=== PATIENT | female | born 1935 | race Caucasian/White ===

== ENCOUNTER 2022-02-13 19:10 | Inpatient (IN) | payer OTHER, SELFPAY ==
[2022-02-13] VITALS (9 sets, daily range): BP systolic 110–140; BP diastolic 65–85; PULSE 85–100; RESP 16–28; TEMP 37.2–39.2; O2SAT 87–96; BMI 24.3; BMI 21.2
[2022-02-13] MEDS: Ipratropium/Albuterol Sulfate 3 ML AMPUL.NEB INHALATION (20:07)
--- NOTE | 2022-02-13 20:10 | EDS_ITS ---
HPI History of Present Illness Chief Complaint: Shortness of Breath Informant: patient and family Narrative Narrative: Patient is here for chills and fever and she vomited once at home. It took quite a bit of information to get that. We talked for quite some time. Patient has dementia. She evidently is not that active. She denied absolutely everything to me. Her family member then spoke up at the end of the visit. He stated that she had chills and rigors tonight. This is what he describes. Although she had denied any nausea vomiting he she evidently did vomit after eating dinner. She sometimes coughs in the morning. He is not sure if she is coughing more. Nothing seems to make her symptoms better or worse. [facility] Medical History Alzheimer disease Atrial fibrillation Dementia Home Medications atorvastatin 10 mg tablet 10 mg PO QHS 10/14/15 [History Last Taken Unknown] fluoxetine 20 mg capsule 10 mg PO DAILY 10/14/15 [History Last Taken Unknown] ondansetron 8 mg disintegrating tablet 8 mg PO Q12H PRN PRN Nausea ##10 10/14/15 [Rx Last Taken Unknown] pantoprazole 40 mg tablet,delayed release 40 mg PO DAILY 10/14/15 [History Last Taken Unknown] spironolactone 25 mg tablet 25 mg PO DAILY 10/14/15 [History Last Taken Unknown] warfarin 2 mg tablet 2 mg PO DAILY 10/14/15 [History Last Taken Unknown] amlodipine 5 mg tablet 5 mg PO DAILY 02/13/22 [History Last Taken Unknown] carvedilol 3.125 mg tablet 3.125 mg PO DAILY 02/13/22 [History Last Taken Unk nown] meloxicam 7.5 mg tablet 7.5 mg PO DAILY 02/13/22 [History Last Taken Unknown] Allergy/AdvReac Type Severity Reaction Status Date / Time Penicillins Allergy Other Verified 02/13/22 21:53 Sulfa (Sulfonamide Allergy Other Verified 02/13/22 21:53 Antibiotics) Surgical History H/O section H/O mastectomy History of appendectomy Hx of cholecystectomy Social History Smoking Status: Never smoker ROS ROS ED Constitutional Constitutional ED: Reports chills, fever(s) and sweats ENT ENT ED: Denies rhinorrhea or sore throat Cardiovascular Cardiovascular: Denies chest pain Respiratory/Chest Respiratory/Chest: Reports cough Gastrointestinal Gastrointestinal: Reports vomiting; Denies abdominal pain Genitourinary Genitourinary ED: Denies dysuria Musculoskeletal Musculoskeletal: Denies arthralgias or myalgias Integumentary Denies rash Neurologic Neurologic: Denies headache(s) Psychiatric Psychiatric: Reports other Details: History of dementia. No apparent significant change. Endocrine Endocrinology: Denies polydipsia or polyuria Hematologic/Lymphatic Hematologic/Lymphatic: Reports easy bleeding and easy bruising Allergic/Immunologic Allergic/Immunologic ED: Denies urticaria EXAM Physical Exam Const Vital Signs: 02/13/22 19:11 02/13/22 19:16 02/13/22 19:16 Temperature 102.6 F H 102.6 F H 102.6 F H Temperature Source Oral Oral Oral Pulse Rate 99 100 99 Respiratory Rate 20 H 22 H 20 H Respiratory Effort Respiratory Depth Respiratory Pattern Blood Pressure 134/76 H 136/75 H 134/76 H Blood Pressure Mean 95 95 95 Pulse Ox 87 93 93 Oxygen Delivery Method Room Air Nasal Cannula Nasal Cannula Oxygen Flow Rate (L/min) 3 3 02/13/22 19:16 02/13/22 19:37 02/13/22 20:08 Temperature Temperature Source Pulse Rate 91 90 Respiratory Rate 25 H 28 H Respiratory Effort Short of Breath Respiratory Depth Normal Respiratory Pattern Normal Blood Pressure 129/85 H Blood Pressure Mean 99 Pulse Ox 96 Oxygen Delivery Method Room Air Nasal Cannula Oxygen Flow Rate (L/min) 3 02/13/22 20:37 02/13/22 20:37 02/13/22 21:00 Temperature 102.6 F H 101.9 F H Temperature Source Oral Temporal Pulse Rate 86 87 87 Respiratory Rate 16 27 H 23 H Respiratory Effort Respiratory Depth Respiratory Pattern Blood Pressure 122/65 H 122/65 H 140/77 H Blood Pressure Mean 84 84 98 Pulse Ox 94 93 92 Oxygen Delivery Method Room Air Room Air Room Air Oxygen Flow Rate (L/min) 02/13/22 21:00 Temperature Temperature Source Pulse Rate 87 Respiratory Rate 25 H Respiratory Effort Respiratory Depth Respiratory Pattern Blood Pressure 140/77 H Blood Pressure Mean 98 Pulse Ox 92 Oxygen Delivery Method Room Air Oxygen Flow Rate (L/min) Positive well nourished and well developed Constitutional Narrative: Patient is comfortable but I see her when she is on oxygen. General Appearance ED: well developed and NAD HEENT Reports moist mucous membranes Eyes General Eye ED: Negative for scleral icterus Neck no JVD Resp normal respiratory effort Resp Narrative: Breathing seems unlabored. But she does have coarse breath sounds mostly on the left side. On her first breath I thought I heard a wheeze but this seemed to improve with further breaths. I will give a breathing treatment to see if this helps her though. Auscultation: rhonchi and wheezes Cardio regular rate and regular rhythm Cardio Narrative: She has a history of atrial fibrillation but her rate sounds quite regular at this time. GI non-tender and non-distended Back/Spine no CVA tenderness Extremity General Extremety ED: Negative for edema or tenderness General Extremity: Negative for edema Neuro Sensorium / Orientation: alert Psych mental status grossly normal Skin no wounds MDM MDM MDM Narrative Medical decision making narrative: X-ray shows some possible congestion. White count is very high at 25.9. Mild anemia. Electrolytes show minimally low potassium. She has elevated creatinine but has a history of this. INR is actually low making me think she actually is no longer on Coumadin. But her symptoms do not match pulmonary embolus. Her lactate was normal at 1.6. Patient does meet sepsis but not severe sepsis criteria. I do not think IV fluids would help and they may hurt her. Her blood pressure is fine. She is given Tylenol for the fever. Breathing treatment did seem to help her in terms of oxygenation although there is no history of chronic lung disease. She was treated with Levaquin because of allergy to penicillin with unknown response. I discussed case with the hospitalist. Lab Data Attestation: I reviewed the patient's lab results. Labs: Laboratory Results - last 24 hr 02/13/22 02/13/22 02/13/22 19:35 19:35 19:35 WBC 25.9 H RBC 3.61 L Hgb 10.1 L Hct 32.1 L MCV 88.9 MCH 28.0 MCHC 31.5 L RDW Std Deviation 48.8 H RDW Coeff of Lyudmila 15.0 H Plt Count 292 MPV 9.8 Immature Gran % (Auto) 2.200 H Neut % (Auto) 92.4 H Lymph % (Auto) 2.3 L [place] % (Auto) 2.2 Eos % (Auto) 0.5 Baso % (Auto) 0.4 Absolute Neuts (auto) 23.9 H Absolute Lymphs (auto) 0.60 L Nucleated RBC % 0 Differential Comment SCANNED PT 15.1 H INR 1.2 Sodium 139 Potassium 3.4 L Chloride 103 Carbon Dioxide 23.0 Anion Gap 13 BUN 39 H Creatinine 2.45 H Estim Creat Clear Calc 13.63 Est GFR (MDRD) Af Amer 24 L Est GFR (MDRD) Non-Af 20 L BUN/Creatinine Ratio 15.9 Glucose 193 H Lactic Acid Calcium 9.1 02/13/22 20:00 WBC RBC Hgb Hct MCV MCH MCHC RDW Std Deviation RDW Coeff of Lyudmila Plt Count MPV Immature Gran % (Auto) Neut % (Auto) Lymph % (Auto) [place] % (Auto) Eos % (Auto) Baso % (Auto) Absolute Neuts (auto) Absolute Lymphs (auto) Nucleated RBC % Differential Comment PT INR Sodium Potassium Chloride Carbon Dioxide Anion Gap BUN Creatinine Estim Creat Clear Calc Est GFR (MDRD) Af Amer Est GFR (MDRD) Non-Af BUN/Creatinine Ratio Glucose Lactic Acid 1.6 Calcium Radiography Diagnostic Testing: Clinical Impression(s) from Imaging Studies Chest X-Ray 02/13/22 20:26 IMPRESSION: 1. Findings are concerning for congestive heart failure exacerbation. 2. Dense airspace disease at the medial aspect of the right upper lobe/apex. Pneumonia is not excluded in proper clinical setting. Electronically Signed: Daniel Jeffers MD at 21:14 EST , AirspaceEKG suspect pain and congestive heart failure. But patient and family deny history of this. Disease at the right upper lobe. Considering she has a fever, cough high white count I think this is likely the source. EKG Initial EKG: Comments: EKG done for history of atrial fibrillation read by me shows a normal sinus rhythm but with first-degree AV block. Overall rate is controlled at 90. No acute ST elevation or depression. There is some T wave inversion laterally. SD interval is long. QRS duration is normal. QTC is long. Discharge Plan Triage Chief Complaint: Shortness of Breath ED Provider: Mina Ordaz Dx/Rx/DC Orders Clinical Impression: Pneumonia, Hypoxia, Sepsis, Leukocytosis Prescriptions: No Action atorvastatin 10 MG tablet 10 mg PO QHS spironolactone 25 MG tablet 25 mg PO DAILY pantoprazole 40 MG tablet 40 mg PO DAILY fluoxetine 20 MG capsule 10 mg PO DAILY warfarin 2 MG tablet 2 mg PO DAILY ondansetron 8 MG tablet,disintegrating 8 mg PO Q12H PRN PRN (Reason: Nausea) Qty: 10 0RF Rx Instructions: amlodipine 5 mg Tablet 5 mg PO DAILY carvedilol 3.125 mg Tablet 3.125 mg PO DAILY meloxicam 7.5 mg Tablet 7.5 mg PO DAILY Primary Care Provider: aJn Johnson Referrals: Jan Johnson MD [Primary Care Provider] - Disposition Disposition: Acute Care [facility]
[2022-02-13 20:13] LABS: Absolute Neutrophil Count 23.9 X10^3/uL (2.0-7.7); Basophil# 0.11 X10^3/uL; Basophil% 0.4 % (0-1); Eosinophil# 0.13 X10^3/uL; Eosinophils% 0.5 % (0-5); Hematocrit 32.1 % (37-47); Hemoglobin 10.1 g/dL (12.0-15.0); Lymphocyte % 2.3 % (19-41); Mean Corp Hgb Conc 31.5 g/dL (32-36); Mean Corpuscular Volume 88.9 fL (81-99); Mean Platelet Vol. 9.8 fl (6.2-12.0); Monocyte# 0.56 X10^3/uL; Monocyte% 2.2 % (0-10); NRBC Flagged by Analyzer 0 % (0-5); Neutrophil # 23.88 X10^3/uL (2.7-7.7); Neutrophil % 92.4 % (47-70); POSITIVE DIFFERENTIAL YES; Platelet Count 292 K/mm3 (150-450); RBC Distribution Width SD 48.8 fl (35.1-43.9); Red Blood Count 3.61 M/mm3 (4.2-5.4); White Blood Count 25.9 K/mm3 (4.4-11.0)
--- NOTE | 2022-02-13 20:26 | RAD_ITS ---
EXAM: XR CHEST, 1 VIEW CLINICAL INDICATION: cough TECHNIQUE: Frontal view of the chest. This report was created using [employer] report generation technology. COMPARISON: None. FINDINGS: LUNGS AND PLEURAL SPACES: Vascular congestion at the upper lungs. Dense opacity along the right paratracheal stripe region probably represents parenchymal disease. Scarring on the left and right midlung. Calcified granuloma in the right lower lobe. Small pleural effusions versus pleural parenchymal scarring. No pneumothorax. HEART: Cardiomegaly and/or pericardial effusion. MEDIASTINUM: Central airways and mediastinal contour are unremarkable. BONES/JOINTS: Diffuse osteopenia. Degenerative changes of the spine, glenohumeral joints, and acromioclavicular joints. SOFT TISSUES: Surgical clips project over the left axilla/lateral chest wall. VASCULATURE: Ectatic thoracic aortic arch with atherosclerotic calcifications. LYMPH NODES: Nodular fullness of the hilar regions, right worse than left may represent adenopathy and/or pulmonary arterial enlargement. RAD/Chest 1 View (Portable) IMPRESSION: 1. Findings are concerning for congestive heart failure exacerbation. 2. Dense airspace disease at the medial aspect of the right upper lobe/apex. Pneumonia is not excluded in proper clinical setting. Electronically Signed: Daniel Jeffers MD at 21:14 EST ,
[2022-02-13 20:27] LABS: Anion Gap 13 (5-15); BUN 39 mg/dL (7-18); BUN/Creat Ratio 15.9 RATIO (10-20); Calcium,Total 9.1 mg/dL (8.5-10.1); Chloride 103 mmol/L (98-107); Creatinine, Serum 2.45 mg/dL (0.55-1.02); Differential Indicated SCAN CRITERIA MET; EST Glomerular Filtration Rate 20 mL/min (>60); Est Glom Filt Rate - Afr Amer 24 mL/min (>60); Estimated Creatinine Clearance 13.63 ml/min; Glucose 193 mg/dL (74-106); Potassium 3.4 mmol/L (3.5-5.1); Sodium Level 139 mmol/L (136-145)
[2022-02-13 20:37] LABS: Lactic Acid 1.6 mmol/L (0.4-1.9)
[2022-02-13 20:45] LABS: International Normalized Ratio 1.2; Prothrombin Time (Protime)PT. 15.1 SECONDS (11.7-14.9)
[2022-02-13 20:49] LABS: Differential Comment SCANNED
[2022-02-13] MEDS: Acetaminophen 500 MG Tablet 1000 MG PO (20:59)
[2022-02-13] MEDS: levoFLOXacin IV 500 MG/100 ML BAG 100 MG IV (21:29)
--- NOTE | 2022-02-13 22:15 | HP.PCM.HOS_ITS ---
HPI - General General Date of Admission: 02/13/22 HPI Narrative MARY CM, is a 86 F who presents from home with fevers, chills, and rigors. She does have some baseline of dementia so she is a little bit of a poor historian however according to the son she started becoming sick all of a sudden today and he denies any sick contacts at home. In the ER she was found to be tachypneic and have a leukocytosis of 25.9. Source of the infection was found to be in her lungs based on chest x-ray. Her point of the family she does not have a history of heart failure but does have a history of A. fib but we do not have any cardiac work-up here at this institution. She did have an episode of nausea and vomiting today however he does not feel like she aspirated and does not think that she has difficulty eating. [facility] Medical History Alzheimer disease Atrial fibrillation Dementia Home Medications atorvastatin 10 mg tablet 10 mg PO QHS 10/14/15 [History Last Taken Unknown] fluoxetine 20 mg capsule 10 mg PO DAILY 10/14/15 [History Last Taken Unknown] ondansetron 8 mg disintegrating tablet 8 mg PO Q12H PRN PRN Nausea ##10 10/14/15 [Rx Last Taken Unknown] pantoprazole 40 mg tablet,delayed release 40 mg PO DAILY 10/14/15 [History Last Taken Unknown] spironolactone 25 mg tablet 25 mg PO DAILY 10/14/15 [History Last Taken Unknown] warfarin 2 mg tablet 2 mg PO DAILY 10/14/15 [History Last Taken Unknown] amlodipine 5 mg tablet 5 mg PO DAILY 02/13/22 [History Last Taken Unknown] carvedilol 3.125 mg tablet 3.125 mg PO DAILY 02/13/22 [History Last Taken Unknown] meloxicam 7.5 mg tablet 7.5 mg PO DAILY 02/13/22 [History Last Taken Unknown] Allergy/AdvReac Type Severity Reaction Status Date / Time Penicillins Allergy Other Verified 02/13/22 21:53 Sulfa (Sulfonamide Allergy Other Verified 02/13/22 21:53 Antibiotics) Family History (Updated 02/13/22 @ 22:[address] Javad Lawrence MD) Other Heart disease Hypertension Surgical History H/O section H/O mastectomy History of appendectomy Hx of cholecystectomy Social History Smoking Status: Never smoker ROS Constitutional Constitutional: Reports chills, fatigue and fever(s); Denies malaise Eyes Eyes: Denies blurry vision ENT HEENT: Denies headache(s) or nasal discharge Cardiovascular Cardiovascular: Denies chest pain, dyspnea on exertion or syncope Respiratory/Chest Respiratory/Chest: Reports cough; Denies shortness of breath at rest or shortness of breath with exertion Gastrointestinal Gastrointestinal: Reports nausea and vomiting; Denies constipation or diarrhea Genitourinary Genitourinary: Denies dysuria Neurologic Neurologic: Denies focal weakness, numbness or tremor(s) Psychiatric Psychiatric: Denies anxiety or depression Vital Signs Vital Signs Vital Signs: 02/13/22 19:11 02/13/22 19:16 02/13/22 19:16 Temperature 102.6 F H 102.6 F H 102.6 F H Temperature Source Oral Oral Oral Pulse Rate 99 100 99 Respiratory Rate 20 H 22 H 20 H Respiratory Effort Respiratory Depth Respiratory Pattern Blood Pressure 134/76 H 136/75 H 134/76 H Blood Pressure Mean 95 95 95 Pulse Ox 87 93 93 Oxygen Delivery Method Room Air Nasal Cannula Nasal Cannula Oxygen Flow Rate (L/min) 3 3 02/13/22 19:16 02/13/22 19:37 02/13/22 20:08 Temperature Temperature Source Pulse Rate 91 90 Respiratory Rate 25 H 28 H Respiratory Effort Short of Breath Respiratory Depth Normal Respiratory Pattern Normal Blood Pressure 129/85 H Blood Pressure Mean 99 Pulse Ox 96 Oxygen Delivery Method Room Air Nasal Cannula Oxygen Flow Rate (L/min) 3 02/13/22 20:37 02/13/22 20:37 02/13/22 21:00 Temperature 102.6 F H 101.9 F H Temperature Source Oral Temporal Pulse Rate 86 87 87 Respiratory Rate 16 27 H 23 H Respiratory Effort Respiratory Depth Respiratory Pattern Blood Pressure 122/65 H 122/65 H 140/77 H Blood Pressure Mean 84 84 98 Pulse Ox 94 93 92 Oxygen Delivery Method Room Air Room Air Room Air Oxygen Flow Rate (L/min) 02/13/22 21:00 02/13/22 22:07 Temperature 99.6 F H Temperature Source Oral Pulse Rate 87 85 Respiratory Rate 25 H 22 H Respiratory Effort Respiratory Depth Respiratory Pattern Blood Pressure 140/77 H 123/75 H Blood Pressure Mean 98 91 Pulse Ox 92 93 Oxygen Delivery Method Room Air Room Air Oxygen Flow Rate (L/min) Weight Weight: 137 lb 5.568 oz Body Mass Index (BMI) 24.3 Physical Exam Narrative General: Alert, Oriented x 2, Cooperative, No apparent distress HEENT: Atraumatic, PERRLA, EOMI, Normocephalic Oral: Dry mucosa Neck: Supple, No JVD Lungs: Diminished, Normal air movement, rhonchi greater on left than right, No wheeze, No rales Cardiovascular: Regular rate, Regular Rhythm, Normal S1, Normal S2, LIDIA Abdomen: Soft, Non Tender, Non-Distended, No Hepato-splenomegaly Extremities: No edema, Capillary Refill Less than 3 Seconds Skin: No rashes, No breakdown Musculoskeletal: No Tenderness to Palpation of Joints or Extremities Neurological: Cranial nerves II-XII grossly intact, Motor Exam 5/5 strength throughout, Sensory exam intact to light touch and pain Psych/Mental Status: Normal Affect, Appropriate Results Lab / Micro Data Result Diagrams: 02/13/22 19:35 02/13/22 19:35 Labs: Laboratory Results - last 24 hr 02/13/22 19:35: WBC 25.9 H, RBC 3.61 L, Hgb 10.1 L, Hct 32.1 L, MCV 88.9, MCH 28.0, MCHC 31.5 L, RDW Std Deviation 48.8 H, RDW Coeff of Lyudmila 15.0 H, Plt Count 292, MPV 9.8, Immature Gran % (Auto) 2.200 H, Neut % (Auto) 92.4 H, Lymph % (Auto) 2.3 L, [place] % (Auto) 2.2, Eos % (Auto) 0.5, Baso % (Auto) 0.4, Absolute Neuts (auto) 23.9 H, Absolute Lymphs (auto) 0.60 L, Nucleated RBC % 0, Differential Comment SCANNED 02/13/22 19:35: Sodium 139, Potassium 3.4 L, Chloride 103, Carbon Dioxide 23.0, Anion Gap 13, BUN 39 H, Creatinine 2.45 H, Estim Creat Clear Calc 13.63, Est GFR (MDRD) Af Amer 24 L, Est GFR (MDRD) Non-Af 20 L, BUN/Creatinine Ratio 15.9, Glucose 193 H, Calcium 9.1 02/13/22 19:35: PT 15.1 H, INR 1.2 02/13/22 20:00: Lactic Acid 1.6 Micro: Microbiology 02/13/22 19:55 Nasal Secretion SARS-CoV-2 & FLU Antigen (Rapid) - Final Radiology Impression Chest X-Ray 02/13/22 20:26 IMPRESSION: 1. Findings are concerning for congestive heart failure exacerbation. 2. Dense airspace disease at the medial aspect of the right upper lobe/apex. Pneumonia is not excluded in proper clinical setting. Electronically Signed: Daniel Jeffers MD at 21:14 EST , Assessment & Plan Assessment/Plan (1) Sepsis: (2) Pneumonia: PLAN: Plan 1. Sepsis secondary to left lower lobe pneumonia ? The pathology on exam appears to be in the left lung ? That she does have cardiomegaly but she does not appear to be volume overloaded at this time ? We will continue with Levaquin every 48 secondary to an allergy to penicillin that she cannot describe ? We will continue with gentle IV fluids, especially given her cardiomegaly on chest x-ray and concern for possible history of CHF that we are not aware of. Currently she is clinically stable ? We will obtain sputum culture ? As to her renal function will only have 2 creatinine levels therefore it is h tameka to tell what her chronic kidney disease stage is at and whether or not she currently has an ANTHONY we will monitor with a BMP 2. A. fib/HTN/HLD ? Does not appear to be a history of CHF however there is mention in her medical record of being on Aldactone ? Blood pressure currently stable we will and given her sepsis as well hold off on restarting her Coreg or her Norvasc ? Can restart her Lipitor if verified ? Can restart her anticoagulation if verified, INR today was 1.2 3. Dementia ? The son states that she generally does well at home but she has been having some mild decline over the last couple years DVT: Heparin Sepsis Attestation Sepsis Attestation: Agree w/Sepsis Possible Source of Sepsis: Pulmonary Sepsis Organ Dysfunction Criteria Present: Creatinine > 2.0 mg/dL Charges/Coding Visit Charges Inpatient E&M: 23217 Init Hosp L2
[2022-02-13] MEDS: 0.9% Normal Saline 1,000 ML 75 ML IV (23:25)
[2022-02-14] VITALS (9 sets, daily range): BP systolic 102–129; BP diastolic 49–78; PULSE 72–88; RESP 14–18; TEMP 36.8–37.6; O2SAT 85–95
[2022-02-14 04:58] LABS: Absolute Lymphocyte Count 0.62 X10^3/uL (0.83-4.51); Absolute Neutrophil Count 22.2 X10^3/uL (2.0-7.7); Basophil# 0.05 X10^3/uL; Basophil% 0.2 % (0-1); Hematocrit 28.3 % (37-47); Hemoglobin 8.7 g/dL (12.0-15.0); Lymphocyte # 0.62 X10^3/ul (0.83-4.51); Lymphocyte % 2.6 % (19-41); Mean Corp Hgb Conc 30.7 g/dL (32-36); Mean Corpuscular Hgb 27.6 pg (27.0-32.0); Mean Corpuscular Volume 89.8 fL (81-99); Mean Platelet Vol. 9.8 fl (6.2-12.0); Monocyte# 0.66 X10^3/uL; Monocyte% 2.7 % (0-10); NRBC Flagged by Analyzer 0 % (0-5); Neutrophil # 22.23 X10^3/uL (2.7-7.7); Neutrophil % 92.1 % (47-70); POSITIVE DIFFERENTIAL YES; Platelet Count 213 K/mm3 (150-450); RBC Distribution Width SD 49.5 fl (35.1-43.9); Red Blood Count 3.15 M/mm3 (4.2-5.4); White Blood Count 24.1 K/mm3 (4.4-11.0)
[2022-02-14 05:12] LABS: Differential Indicated SCAN CRITERIA MET
[2022-02-14 05:35] LABS: Anion Gap 12 (5-15); BUN 42 mg/dL (7-18); BUN/Creat Ratio 16.7 RATIO (10-20); Calcium,Total 8.4 mg/dL (8.5-10.1); Chloride 104 mmol/L (98-107); Creatinine, Serum 2.51 mg/dL (0.55-1.02); EST Glomerular Filtration Rate 19 mL/min (>60); Est Glom Filt Rate - Afr Amer 23 mL/min (>60); Estimated Creatinine Clearance 15.06 ml/min; Glucose 148 mg/dL (74-106); Potassium 3.2 mmol/L (3.5-5.1); Sodium Level 139 mmol/L (136-145)
[2022-02-14 05:37] LABS: Anisocytosis 1+
--- NOTE | 2022-02-14 06:52 | NURSING ---
Documentation reviewed with Brian RANDLE.
[2022-02-14] MEDS: Potassium Chloride Oral Tablet 20 MEQ 40 MEQ PO (08:38)
[2022-02-14] MEDS: Heparin Injection (Vial) 5,000 UNIT/ML VIAL 5000 UNIT SC ×2 (08:49→22:06)
[2022-02-14] MEDS: guaiFENesin 600 MG Tablet PO ×2 (08:49→22:06)
--- NOTE | 2022-02-14 11:25 | CASEMGMT ---
SW reviewed chart and patient is listed as self pay. SW met with patient's daughter. Introduced self and role at [facility]. SW explained SW noted patient is listed as self pay. SW asked if they needed any resources to assist with medication etc. Patient's daughter said their taoism normally pays for their medical costs. Afshan Hernandez [employer]
--- NOTE | 2022-02-14 12:21 | ECHOD_ITS ---
Reason For Study: Murmur Procedure This was a 2D Doppler, Color Flow transthoracic echocardiogram. Exam performed portable in patient room. Left Ventricle Normal size and thickness. The left ventricular ejection fraction is 25 %. Stage 2 diastolic dysfunction. Right Ventricle Normal right ventricle. Atria The left atrium is severely enlarged. Normal right atrium. Patent foramen ovale. Mitral Valve Severe diffuse mitral valve calcification. Mild-Moderate (1-2+) mitral valve insufficiency. Tricuspid Valve Mild tricuspid valve insufficiency. Right ventricular systolic pressure estimated to be 42 mmHg. Aortic Valve Severe diffuse aortic valve calcification. Mild to moderate aortic stenosis. Pulmonic Valve The pulmonic valve is not well visualized. Great Vessels Normal sized aortic root. Pericardium/Pleural No pericardial effusion. MMode/2D Measurements & Calculations LVIDd: 5.2 cm IVSd: 0.96 cm LVOT diam: 1.9 cm LVIDs: 4.5 cm LVPWd: 0.82 cm LVOT area: 3.0 cm2 RVDd: 4.2 cm FS: 13.0 % Ao root diam: 3.4 cm LAV(MOD-bp): 88.0 ml LVAd ap4: 30.3 cm2 LAV(MOD-bp) Indexed: 52.7 ml/m2 LVLd ap4: 7.7 cm LAV(MOD-sp2): 94.6 ml EDV(MOD-sp4): 96.6 ml LAV(MOD-sp4): 73.2 ml EDV(sp4-el): 100.7 ml LVAs ap4: 24.9 cm2 LVLs ap4: 6.9 cm ESV(MOD-sp4): 72.9 ml ESV(sp4-el): 76.2 ml EF(MOD-sp4): 24.5 % EF(sp4-el): 24.3 % LVAd ap2: 32.4 cm2 SV(MOD-sp4): 23.6 ml SV(MOD-sp2): 16.2 ml LVLd ap2: 8.0 cm EDV(MOD-sp2): 106.6 ml EDV(sp2-el): 110.5 ml LVAs ap2: 29.0 cm2 LVLs ap2: 7.6 cm ESV(MOD-sp2): 90.4 ml ESV(sp2-el): 93.8 ml EF(MOD-sp2): 15.2 % SV(sp4-el): 24.5 ml LA dimension(2D): 4.4 cm LA A4 area: 24.5 cm2 RA A4 area: 20.6 cm2 Doppler Measurements & Calculations MV E max pepe: 141.3 cm/sec Lat Peak E' Pepe: 5.6 cm/sec Med Peak E' Pepe: 5.3 cm/sec MV A max pepe: 77.0 cm/sec E/E' lat: 25.0 E/E' med: 26.5 MV E/A: 1.8 MV V2 max: 145.4 cm/sec MV P1/2t max pepe: 142.2 cm/sec Ao V2 max: 260.4 cm/sec MV max P.5 mmHg MV P1/2t: 47.9 msec Ao max P.2 mmHg MV V2 mean: 89.0 cm/sec MV dec slope: 869.7 cm/sec2 Ao V2 mean: 192.7 cm/sec MV mean P.5 mmHg Ao mean P.3 mmHg MV V2 VTI: 22.7 cm MVA(P1/2t): 4.6 cm2 Ao V2 VTI: 53.3 cm MVA(VTI): 3.7 cm2 AMINATA(I,D): 1.6 cm2 AMINATA(V,D): 1.6 cm2 LV V1 max: 143.7 cm/sec SV(LVOT): 83.8 ml TR max pepe: 281.4 cm/sec LV V1 max P.3 mmHg TR max P.0 mmHg LV V1 mean P.7 mmHg LV V1 mean: 102.9 cm/sec LV V1 VTI: 28.4 cm ECHO/Echo Complete W/ Contrast Interpretation Summary The left ventricular ejection fraction is 25 %. Stage 2 diastolic dysfunction. Patent foramen ovale. Severe diffuse mitral valve calcification. Mild-Moderate (1-2+) mitral valve insufficiency. Mild tricuspid valve insufficiency. Right ventricular systolic pressure estimated to be 42 mmHg. Severe diffuse aortic valve calcification. Mild to moderate aortic stenosis. Ordering Physician: Amada Sutton Referring Physician: Jan Johnson M.D. Performed By: Dulce Langford RCS
[2022-02-14] MEDS: amLODIPine 5 MG Tablet PO (12:32)
[2022-02-14] MEDS: Carvedilol 3.125 MG TABLET PO (12:32)
[2022-02-14] MEDS: FLUoxetine 10 MG Capsule PO (12:32)
[2022-02-14] MEDS: 0.9% Saline Lock 10 ML Syringe IV ×2 (12:35→15:25)
[2022-02-14] MEDS: Ondansetron 4 MG/2 ML Vial IV (12:35)
--- NOTE | 2022-02-14 13:00 | PCM.PN.HOSP ---
Subjective Subjective Daughter at bedside with patient. Reports that she has been having ongoing worsening shortness of breath for approximately the last 6 weeks that is worse in the morning and then subside some throughout the day. She is not overtly active. Her white count is elevated and chest x-ray did suggest some signs of pneumonia so she was started antibiotics however I do suspect there may be a component of heart failure as well. Patient is on room air. Objective Data Objective Data Vital Signs: Vital Signs Temp Pulse Resp BP Pulse Ox O2 Del Method O2 Flow Rate 99.0 F 81 15 129/78 H 90 Room Air 3 02/14/22 12:22 02/14/22 12:22 02/14/22 12:22 02/14/22 12:22 02/14/22 12:22 02/14/22 12:02/14/22 12:22 Oxygen Flow Rate (L/min) 3 Oxygen Delivery Method Room Air Weight: 59.8 kg Body Mass Index (BMI) 21.2 Intake & Output: Intake and Output for Last 24 Hours 02/12/22 02/13/22 02/14/22 23:59 23:59 23:59 Intake Total 100 / 100 751.25 / 751.25 Balance 100 / 100 751.25 / 751.25 Lab / Micro Data Result Diagrams: 02/14/22 04:07 02/14/22 04:07 Labs: Laboratory Results - last 24 hr 02/13/22 19:35: WBC 25.9 H, RBC 3.61 L, Hgb 10.1 L, Hct 32.1 L, MCV 88.9, MCH 28.0, MCHC 31.5 L, RDW Std Deviation 48.8 H, RDW Coeff of Lyudmila 15.0 H, Plt Count 292, MPV 9.8, Immature Gran % (Auto) 2.200 H, Neut % (Auto) 92.4 H, Lymph % (Auto) 2.3 L, [place] % (Auto) 2.2, Eos % (Auto) 0.5, Baso % (Auto) 0.4, Absolute Neuts (auto) 23.9 H, Absolute Lymphs (auto) 0.60 L, Nucleated RBC % 0, Differential Comment SCANNED 02/13/22 19:35: Sodium 139, Potassium 3.4 L, Chloride 103, Carbon Dioxide 23.0, Anion Gap 13, BUN 39 H, Creatinine 2.45 H, Estim Creat Clear Calc 13.63, Est GFR (MDRD) Af Amer 24 L, Est GFR (MDRD) Non-Af 20 L, BUN/Creatinine Ratio 15.9, Glucose 193 H, Calcium 9.1 02/13/22 19:35: PT 15.1 H, INR 1.2 02/13/22 20:00: Lactic Acid 1.6 02/14/22 04:07: WBC 24.1 H, RBC 3.15 L, Hgb 8.7 L, Hct 28.3 L, MCV 89.8, MCH 27.6, MCHC 30.7 L, RDW Std Deviation 49.5 H, RDW Coeff of Lyudmila 15.0 H, Plt Count 213, MPV 9.8, Immature Gran % (Auto) 2.400 H, Neut % (Auto) 92.1 H, Lymph % (Auto) 2.6 L, [place] % (Auto) 2.7, Eos % (Auto) 0.0, Baso % (Auto) 0.2, Absolute Neuts (auto) 22.2 H, Absolute Lymphs (auto) 0.62 L, Nucleated RBC % 0, Anisocytosis 1+ 02/14/22 04:07: Sodium 139, Potassium 3.2 L, Chloride 104, Carbon Dioxide 23.0, Anion Gap 12, BUN 42 H, Creatinine 2.51 H, Estim Creat Clear Calc 15.06, Est GFR (MDRD) Af Amer 23 L, Est GFR (MDRD) Non-Af 19 L, BUN/Creatinine Ratio 16.7, Glucose 148 H, Calcium 8.4 L Micro: Microbiology 02/13/22 19:55 Nasal Secretion SARS-CoV-2 & FLU Antigen (Rapid) - Final Radiography Diagnostic Testing: Radiology Impression Chest X-Ray 02/13/22 20:26 IMPRESSION: 1. Findings are concerning for congestive heart failure exacerbation. 2. Dense airspace disease at the medial aspect of the right upper lobe/apex. Pneumonia is not excluded in proper clinical setting. Electronically Signed: Daniel Jeffers MD at 21:14 EST , Physical Exam Const alert, oriented x3 and no apparent distress Constitutional Narrative: Elderly white female sitting up in bed, [id number] at bedside, patient appears comfortable and currently on room air, nontoxic HEENT head/scalp atraumatic and moist oral mucous membranes HEENT Narrative: Dentition is poor, Mallampati is 2, no thrush Head and Scalp: normocephalic Resp normal respiratory effort, no retractions and no use of accessory muscles Resp Narrative: Crackles noted in right base and midlung field, diminished on left Auscultation: crackles; Negative for rhonchi or wheezes Cardio regular rhythm, S1 normal heart sound, no rub, no gallops and no clicks; Negative for no murmurs Cardio Narrative: Soft S2, 3 out of 6 to 4 out of 6 systolic murmur GI normal to inspection, nondistended, normoactive bowel sounds, soft to palpation and non-tender Extremity no clubbing, cyanosis or edema Extremity Narrative: 2+ pedal pulses Neuro oriented x3, moves all extremities and no focal motor deficits Neuro Narrative: Mild generalized weakness noted Speech: speech normal Psych affect normal Psych Narrative: Very pleasantly interactive Assessment & Plan Assessment/Plan (1) Hypoxia: (2) Pneumonia: (3) Sepsis: (4) Leukocytosis: (5) Murmur: (6) Hypokalemia: PLAN: Plan Sepsis secondary to suspected pneumonia -Patient with leukocytosis, tachypnea and suspected infection with pneumonia -We will switch antibiotics from levofloxacin to ceftriaxone azithromycin given renal function -Check strep pneumo and Legionella antigens -Check respiratory viral panel -Sputum culture with induction -Add Mucinex -As needed albuterol for shortness of breath -COVID and flu are negative -Patient has been weaned to room air--> keep sats greater than 92% Hypoxia -Due to the above -Continue treatment as above -Possible heart failure as well based on review of chest x-ray and patient does have cardiac murmur -Suspect valvular disease unclear what baseline cardiac function is -We will defer BNP as she has a markedly elevated serum creatinine at baseline Leukocytosis -Continue antibiotics -Has significant neutrophilia with differential of greater than 90% -Treatment as above -We will check urinalysis and culture if abnormal -Blood cultures are pending -Sputum culture ordered if able to produce Cardiac murmur -Check echocardiogram -Murmur seems to be most consistent with aortic valve disease which could be contributing to her shortness of breath Hypokalemia -40 mill colons p.o. potassium -Repeat in a.m. -Check a.m. magnesium Hypertension -Continue home carvedilol -Continue home amlodipine CKD stage IV -Baseline serum creatinine is around 2.5 -Discontinue home meloxicam -Continue to monitor renal function Depression -Continue home fluoxetine Dementia -No acute issues -Lives at home with family and plan is for discharge back home DVT prophylaxis -Heparin twice daily CODE STATUS -DNR CCA no intubation Charges/Coding Visit Charges Inpatient E&M: 16450 Subs Hosp L2
--- NOTE | 2022-02-14 14:14 | CHAPLAIN ---
Type of Pastoral Visit _x__ Initial Visit ___ Follow-up Visit ___ On-call Visit ___ General Patient Visit ___ Spiritual Assessment ___ Family Conference ___ Bereavement ___ Rapid Response ___ Code Blue ___ Other (describe below) Pastoral Care Referral From _x__ Patient ___ Family ___ Nurse ___ Physician ___ Wet Mixer ___ Saddle Lining Stitcher ___ Other (describe below) Sacrament/Intervention _x__ Active listening ___ Anointing ___ Samaritan ___ Bereavement ___ Communion ___ [place] exploration ___ ___ Life review _x__ Prayer ___ Reconciliation ___ Sacrament of Sick _x__ Supportive presence ___ Wedding ___ Other (describe below) Pastoral Comments patient reports feeling better and not having any concerns; pt was 11 months ago and lives with son and [id number]; pt has no worries per her report; pt welcomed prayer; offer of support to dil in the room
--- NOTE | 2022-02-14 14:58 | PCM.HOSP.N ---
Hospitalist Note Able to find a previous echocardiogram done on 11/11/2019 which showed an EF of 55 to 60%, concentric LVH, moderate aortic valve stenosis with a bicuspid aortic valve and a valvular area of 1.48, mild MR and a right ventricular systolic pressure of 31 mmHg. Repeat echocardiogram done today shows an EF of 25%, stage II diastolic dysfunction, severe mitral valve calcification with moderate mitral regurgitation and aortic stenosis that is mild to moderate. Given the above findings I had a conversation with the family. Patient has significant dementia and other multiple comorbidities including CKD stage IV and they feel that she would not tolerate any significant interventions or work-up and would like to pursue hospice at discharge. Discussed with social work and case management. Hospice consult placed and will likely see patient tomorrow. The goal is for discharge home with hospice. In the meantime we will try to diurese her a little bit to see if we can help her shortness of breath and continue ongoing antibiotics as she does have a leukocytosis with a left shift.
[2022-02-14] MEDS: Furosemide 100 MG/10 ML Vial 60 MG IV (15:26)
--- NOTE | 2022-02-14 15:35 | CASEMGMT ---
Physician spoke with patient's daughter in law Susana Michelle. Susana Michelle and family all agreed on a Hospice referral. SW spoke with Susana Michelle, her Gilberto is patient's son. SW explained Hospice will come in and talk with them about Hospice. Susana Michelle said she will be here all day tomorrow. SW called [facility] referral line and made referral. SW also faxed referral. TJ also called Felicitas at [facility] and left her a voice mail letting her know SW sent a referral. TJ asked that they call SW when they will be coming in tomorrow. Plan: Home with Hospice pending Hospice meeting. Afshan Hernandez COIN MACHINE SUPERVISOR DAI
[2022-02-15 00:10] LABS: Bacteria 0 SEEN /hpf (None Seen); Mucous, Urine 0 SEEN /hpf (<or=2+); Red Blood Cells-Urine 0 SEEN /hpf (0-5)
[2022-02-15 00:24] LABS: Color, Urine Yellow (Yellow); Glucose, Dipstick Normal (Normal); Ketone-Dipstick Negative (Negative); Leukocyte Esterase-Dipstick 100 /ul (Negative); Nitrite-Dipstick Negative (Negative); Occult Blood-Urine 10 /ul (Negative); Protein-Dipstick 30 mg/dl (Negative); Urine Bilirubin Dipstick Negative (Negative); Urine Clarity Clear (Clear); Urine Urobilinogen Normal (Normal)
[2022-02-15 00:41] LABS: Squamous Epithelial Cells - UA 0-5 SEEN /hpf (5-10); White Blood Cells 0-5 SEEN /hpf (0-5)
[2022-02-15 04:30] VITALS: BP 124/71; PULSE 78; RESP 16; TEMP 36.6; O2SAT 98
[2022-02-15 04:52] VITALS: BP 124/71; PULSE 78; RESP 16; TEMP 36.6; O2SAT 98
[2022-02-15 07:07] LABS: International Normalized Ratio 1.3; Prothrombin Time (Protime)PT. 15.6 SECONDS (11.7-14.9)
--- NOTE | 2022-02-15 08:03 | CASEMGMT ---
SW received a voice mail from Jax at Hospice. A liaison will be at [facility] to meet with family Friday at 9a. Plan: Home with Hospice Afshan LALA
[2022-02-15 08:33] VITALS: O2SAT 98
[2022-02-15 10:41] VITALS: BP 132/80; PULSE 77; RESP 14; TEMP 36.7; O2SAT 91
[2022-02-15] MEDS: Carvedilol 3.125 MG TABLET PO (10:49)
[2022-02-15] MEDS: amLODIPine 5 MG Tablet PO (10:50)
[2022-02-15] MEDS: Heparin Injection (Vial) 5,000 UNIT/ML VIAL 5000 UNIT SC (10:50)
[2022-02-15] MEDS: guaiFENesin 600 MG Tablet PO (10:50)
[2022-02-15] MEDS: Furosemide 100 MG/10 ML Vial 60 MG IV (10:50)
[2022-02-15] MEDS: FLUoxetine 10 MG Capsule PO (10:50)
[2022-02-15] MEDS: 0.9% Saline Lock 10 ML Syringe IV (10:57)
--- NOTE | 2022-02-15 11:02 | DS.PCM_ITS ---
Providers Date of Admission: 02/13/22 Date of Discharge: 02/15/22 Primary Care Physician: Dr. Jan Johnson MD Consultations 02/14/22 15:00 Consult: Hospice / Palliative Care Routine Consulting Provider: [facility] Reason for Consult: Cardiomyopathy/CKD Stage IV EMERGENT Consult: No MD Notified: Yes Date Notified: 02/14/22 Time Notified: 15:00 Method of Notification: per high school social studies teacher Reason For Visit: PNEUMONIA Diagnosis Discharge Diagnosis (1) Hypoxia: Status: Acute Code(s): R09.02 - Hypoxemia (2) Pneumonia: Status: Acute Code(s): J18.9 - Pneumonia, unspecified organism (3) Sepsis: Status: Acute Code(s): A41.9 - Sepsis, unspecified organism (4) Leukocytosis: Status: Acute Code(s): D72.829 - Elevated white blood cell count, unspecified (5) Murmur: Status: Acute Code(s): R01.1 - Cardiac murmur, unspecified (6) Hypokalemia: Status: Acute Code(s): E87.6 - Hypokalemia Medications at Discharge Home Medications fluoxetine 20 mg capsule 10 mg PO DAILY depression 10/14/15 amlodipine 5 mg tablet 5 mg PO DAILY blood pressure 02/13/22 carvedilol 3.125 mg tablet 3.125 mg PO DAILY heart 02/13/22 meloxicam 7.5 mg tablet 3.75 mg PO DAILY pain 02/13/22 meclizine 12.5 mg tablet 12.5 mg PO TID PRN Dizziness 02/14/22 Hospital Course Operations None Procedures 2-D Echocardiogram and EKG Summary of Care Provided Minutes Spent on Discharge: 36 Hospital Course: Mrs. Costello is an 86-year-old white female who presented to the emergency department at [facility] on 02/13/2022. Family reported that she had an increase amount of shortness of breath for approximately the last 6 weeks prior to presentation but seem to be worse in the morning and a little bit better as the day went on. They report they brought her in because she was having worsening shortness of breath with subjective fevers chills and possible rigors. The patient has baseline dementia was unable to give any significant history on presentation. Her symptoms all above other than her shortness of breath started all of a sudden on the day of presentation. In the emergency department she was found to be tachypneic and have a leukocytosis of 25.9. Source of infection was unclear as she is not having any sputum production and no significant cough. Family reported that she had 1 episode of nausea and vomiting on the day of admission but has otherwise been eating well and not having any issues. She was initially admitted to the medical surgical floor and infectious work-up was pursued COVID test was negative, respiratory viral panel was negative, and strep pneumo and Legionella antigens were negative. Patient was afebrile throughout her entire hospital course. Blood cultures were drawn in the emergency department and pending upon discharge. At the time of my examination I noted a significant cardiac murmur and we had no documented history in our system. An echocardiogram was obtained and I was able to find a previous echocardiogram done in 2019 which showed an EF of 55 to 60%, concentric LVH, moderate aortic valve stenosis with a bicuspid aortic valve and a valvular area of 1.48, mild MR and a right ventricular systolic pressure of 31 mmHg. Repeat echocardiogram done on 02/14/2022 showed an EF of 25%, stage II diastolic dysfunction, severe mitral valve calcification with moderate mitral regurgitation and aortic stenosis that is mild to moderate. Given the dramatic change in her ejection fraction I had an extensive conversation with the [id number] who is at the bedside and they indicated given her significant d ementia and multiple other comorbidities including CKD stage IV they felt she would not tolerate and they would not want her to go through any aggressive work-up or further intervention. I did discuss the option of hospice with him and they were very amenable to this. Their goal is to get her home as soon as possible and keep her as comfortable as possible. Hospice met with the patient and family on 02/15/2022 and hospice papers were signed at this time. Patient will be discharged home with hospice and supplemental oxygen for comfort. Discharge diagnoses: Cardiomyopathy of unknown etiology Shortness of breath Mitral valve insufficiency Aortic valve stenosis Paroxysmal atrial Hypertension Alzheimer's disease CKD stage IV Depression Osteoarthritis Physical Exam Const alert, oriented x3 and no apparent distress Constitutional Narrative: Elderly white female lying in bed, [id number] at bedside, court liaison at bedside, patient appears comfortable and currently on 2 L nasal cannula, nontoxic General Appearance: cooperative, comfortable, well kempt and well developed Orientation / Consciousness: awake and oriented to person Exam Limitations: other limitations HEENT normocephalic, head/scalp atraumatic and moist oral mucous membranes HEENT Narrative: Moderate hearing loss, dentition is poor, Mallampati 2 Eyes PERRL and EOMs intact bilaterally Eyes Narrative: No scleral icterus, conjunctiva are mildly pale Neck no lymphadenopathy and supple Neck Narrative: Trachea midline Resp normal respiratory effort, no retractions and no use of accessory muscles Resp Narrative: Crackles noted in right base and midlung field, diminished on left Auscultation: crackles; Negative for rhonchi or wheezes Cardio regular rate, regular rhythm, S1 normal heart sound, no rub, no gallops and no clicks; Negative for no murmurs Cardio Narrative: Soft S2, 3 out of 6 to 4 out of 6 systolic murmur GI normal to inspection, nondistended, normoactive bowel sounds, soft to palpation and non-tender Extremity no clubbing, cyanosis or edema Extremity Narrative: 2+ pedal pulses Skin no rashes or lesions noted, no wounds, skin turgor normal and no jaundice Skin Narrative: Skin is pale Neuro CN's II-XII intact bilaterally, moves all extremities and no focal motor deficits Neuro Narrative: generalized weakness noted, oriented only to self which is baseline per family Speech: speech normal Psych affect normal Psych Narrative: Confused but very pleasant Weight / BMI Weight Weight: 59.8 kg Body Mass Index (BMI) 21.2 ABG / Lab / Microbiology Data Result Diagrams: 02/14/22 04:07 02/14/22 04:07 Laboratory: Laboratory Results - last 24 hr 02/14/22 23:25: Urine Color Yellow, Urine Clarity Clear, Urine pH 6.0, Ur Specific [place] 1.010, Urine Protein 30 H, Urine Glucose (UA) Normal, Urine Ketones Negative, Urine Occult Blood 10 H, Urine Nitrite Negative, Urine Bilirubin Negative, Urine Urobilinogen Normal, Ur Leukocyte Esterase 100 H, Urine RBC 0 SEEN, Urine WBC 0-5 SEEN, Ur Squamous Epith Cells 0-5 SEEN, Urine Bacteria 0 SEEN, Urine Mucus 0 SEEN 02/15/22 06:25: PT 15.6 H, INR 1.3 Microbiology: Microbiology 02/14/22 23:25 Urine, Clean Catch Legionella Antigen - Final 02/14/22 23:25 Urine, Clean Catch Streptococcus pneumoniae Antigen (M - Final 02/14/22 11:06 Mucosa - Nasopharyngeal Respiratory Panel (PCR) - Final 02/13/22 19:55 Nasal Secretion SARS-CoV-2 & FLU Antigen (Rapid) - Final Radiography Diagnostic Testing: Radiology Impression Echocardiogram 02/14/22 12:21 Interpretation Summary The left ventricular ejection fraction is 25 %. Stage 2 diastolic dysfunction. Patent foramen ovale. Severe diffuse mitral valve calcification. Mild-Moderate (1-2+) mitral valve insufficiency. Mild tricuspid valve insufficiency. Right ventricular systolic pressure estimated to be 42 mmHg. Severe diffuse aortic valve calcification. Mild to moderate aortic stenosis. Ordering Physician: Amada Sutton Referring Physician: Jan Johnson M.D. Performed By: Dulce Langford RCS D/C Instructions Discharge Diet: No restrictions Discharge Activity: Return to Normal Activity Meaningful Use Info Meaningful Use Diagnoses (Choose all that apply): None applicable Discharge Plan Admission Admit Date/Time: 02/13/22 22:14 Primary Reason for Your Visit: SOB Attending Provider: Amada Sutton Primary Care Provider: Jan Johnson Consulting Providers: Javad Lawrecne ; Julieth Ledesma ; Merrick King ; Cynthia Finnegan ; Imelda Hardin ; Madison Domínguez HEEL BUILDER MACHINE Discharge Orders/Prescriptions Prescriptions: Continued fluoxetine 20 MG capsule 10 mg PO DAILY amlodipine 5 mg Tablet 5 mg PO DAILY carvedilol 3.125 mg Tablet 3.125 mg PO DAILY meloxicam 7.5 mg Tablet 3.75 mg PO DAILY meclizine 12.5 mg Tablet 12.5 mg PO TID PRN (Reason: Dizziness) Referrals / Follow Up: Jan Johnson MD [Primary Care Provider] - See Referral Note (As Needed) Disposition Disposition (needs filled in before D/C Order can be placed): Home, Self Care Charges/Coding Visit Charges Inpatient E&M: 36604 Disch Hosp
[2022-02-15 11:21] VITALS: BP 132/80; PULSE 77; RESP 14; TEMP 36.7; O2SAT 91
--- NOTE | 2022-02-15 11:22 | CASEMGMT ---
TJ spoke with Susana Vasquez from Hospice. Family signed Hospice papers. Family would like to take patient home as soon as possible. TJ spoke with patient's daughter in law Susana Michelle. She said she can get a ride home she just needs to know when they can leave. TJ told her SW will let her know when d/c information is in computer and nurse is okay with patient leaving. Plan: Home with [facility]. Afshan LALA
[2022-02-15 12:25] VITALS: BP 132/80; PULSE 77; RESP 14; TEMP 36.7; O2SAT 91
--- NOTE | 2022-02-15 14:27 | CASEMGMT ---
Patient and her daughter in law left. TJ called Felicitas at Hospice and let her know. TJ also faxed information to Hospice. Plan: d/c home with [facility] Afshan LALA
== END 2022-02-15 14:09 | disposition hospice, home (50) | DRG 871 ==
LOC: ED 22:04 → PCU 23:28
PROVIDERS: Admitting Provider Family Medicine; Emergency Provider Emergency Medicine; PCP Family Medicine; Visit Provider Internal Medicine
DX: A41.9 Sepsis, unspecified organism (principal); J18.9 Pneumonia, unspecified organism; N18.4 Chronic kidney disease, stage 4 (severe); Q23.1 Congenital insufficiency of aortic valve; F02.80 Dementia in other diseases classified elsewhere, unspecified severity, without behavioral disturbance, psychotic disturbance, mood disturbance, and anxiety; G30.9 Alzheimer's disease, unspecified; I48.91 Unspecified atrial fibrillation; I12.9 Hypertensive chronic kidney disease with stage 1 through stage 4 chronic kidney disease, or unspecified chronic kidney disease; E78.5 Hyperlipidemia, unspecified; D64.9 Anemia, unspecified; E87.6 Hypokalemia; M19.90 Unspecified osteoarthritis, unspecified site; R09.02 Hypoxemia; R01.1 Cardiac murmur, unspecified; Z20.822 Contact with and (suspected) exposure to COVID-19; Z66 Do not resuscitate; F32.A Depression, unspecified; Z79.899 Other long term (current) drug therapy; Z79.01 Long term (current) use of anticoagulants
CPT/HCPCS: 36415; 71045; 80048; 81001; 83605; 85025; 85610; 87040; 87428; 87449; 87633; 93005; 93306; 94640; 94667; 94668; 97802; 99251; 99285; J7030; A4216; C8929; G0463; J0696; J1940; J2405